=== PATIENT | female | born 1960 | race Caucasian/White ===

== ENCOUNTER → 2016-10-04 | Outpatient (CLI) | payer BC ==
--- NOTE | 2016-10-05 17:45 | RADIOLOGY REPORT (SQ) ---
EXAM DESCRIPTION: MRI LT LOWER EXTREMITY COMBO COMPLETED DATE/TIME: 10/04/2016 8:49 pm REASON FOR STUDY: Localized swelling, mass and lump, lower limb, bilateral R22.43 LOCALIZED SWELLIN G, MASS AND LUMP, LOWER LIMB, BILATE COMPARISON: None. TECHNIQUE: T1-weighted, T2-weighted, and gradient echo noncontrast multiplanar imaging of the left f oot. LIMITATIONS: None. FINDINGS: MARROW SIGNAL: There is diffuse marrow edema throughout the 4th metatarsal proximal metaph ysis and proximal and mid diaphysis worrisome for stress fracture there is mild contrast enhancement of the marrow. The small focus of marrow edema in the proximal 2nd metatarsal metaphysis present with lung worrisome for early or developing stress fracture. There is an old healed stress fracture the base of the metatarsal axial STIR image 16 without marrow edema or enhancement. JOINT EFFUSION: There is a small synovial cyst protruding off the dorsal aspect of the calcaneocuboid joint, measuring 9 mm in size on axial image 8, coronal image 32, and sagittal image 13. PLANTAR FASCIA: Normal as visualized. TARSOMETATARSAL AND TOE ARTICULATIONS: Anatomic. Mild degenerative changes first metatarsal phalange al joint. INTERMETATARSAL SPACES AND PLANTAR PLATES: A 10 x 5 x 5 mm fluid collection is present between the 3r d and 4th metatarsal heads. No associated contrast enhancement. This is best shown on axial image 1 3 and coronal image 15. No soft tissue mass to suggest a neuroma. SOFT TISSUES: No masses. No fibrosis. OTHER: No other significant finding. IMPRESSION: 4th metatarsal stress fracture 2nd metatarsal stress fracture Fluid between the 3rd and 4th metatarsal heads without enhancing solid nodule TECHNICAL DOCUMENTATION: JOB ID: [id number] [employer]- All Rights Reserved
== END ==
LOC: RAD 19:20
PROVIDERS: ATTEND Podiatrist Foot & Ankle Surgery
DX: R22.43 Localized swelling, mass and lump, lower limb, bilateral (principal); S92.322A Displaced fracture of second metatarsal bone, left foot, initial encounter for closed fracture; S92.342A Displaced fracture of fourth metatarsal bone, left foot, initial encounter for closed fracture; X58.XXXA Exposure to other specified factors, initial encounter
CPT/HCPCS: 82565; 73720; A9576

== ENCOUNTER → 2016-10-08 | Outpatient (CLI) | payer BC ==
--- NOTE | 2016-10-09 08:20 | RADIOLOGY REPORT (SQ) ---
EXAM DESCRIPTION: MRI RT LOWER EXTREMITY WITHOUT COMPLETED DATE/TIME: 10/08/2016 5:48 pm REASON FOR STUDY: MASS R22.43 LOCALIZED SWELLING, MASS AND LUMP, LOWER LIMB, BILATE COMPARISON: None. TECHNIQUE: T1-weighted, T2-weighted, and gradient echo noncontrast multiplanar imaging of the right foot. Additional T1 post-contrast axial coronal and sagittal images of the right foot were obtained. Patient was injected with 15 mL of IV ProHance gadolinium. Estimated GFR greater than 60 LIMITATIONS: None. FINDINGS: MARROW SIGNAL: There is marrow edema in the subcortical bone, at the articulation between the 2nd and 3rd metatarsal bases, best shown on axial STIR series 6 image 7-9. There is also marrow edema throughout the proximal 3rd of the 4th metatarsal, and marrow edema throughout the lateral cune iform bone. These changes are best shown on axial STIR series 6, images 8-2. JOINT EFFUSION: There is fluid at the 1st metatarsophalangeal joint. There is also an 11 x 11 x 3 mm synovial cyst between the 3rd and 4th metatarsal heads on coronal series 4 image 14, and axial serie s 6 image 13. PLANTAR FASCIA: Normal as visualized. TARSOMETATARSAL AND TOE ARTICULATIONS: Anatomic. Mild degenerative changes first metatarsal phalange al joint. INTERMETATARSAL SPACES AND PLANTAR PLATES: 11 x 11 x 3 mm synovial cyst between the 3rd and 4th metat arsal heads. No solid masses. No abnormal contrast enhancement. SOFT TISSUES: No masses. No fibrosis. OTHER: There is joint space narrowing and subcortical cyst formation between the bases of the 2nd and 3rd metatarsals, and between the bases of the 3rd and 4th metatarsals. There is joint space narrowi ng and subcortical cyst formation and bony spurring at the 3rd tarsometatarsal joint. 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 TECHNICAL DOCUMENTATION: JOB ID: [id number] [employer]- All Rights Reserved
== END ==
LOC: RAD 16:30
PROVIDERS: ATTEND Podiatrist Foot & Ankle Surgery
DX: R22.43 Localized swelling, mass and lump, lower limb, bilateral (principal)
CPT/HCPCS: 73718; A9576

== ENCOUNTER → 2018-07-08 | Outpatient (CLI) | payer BC ==
[2018-07-08 08:49] LABS: CHOLESTEROL 219.42 mg/dL (0-200); TRIGLYCERIDES 100 mg/dL (<150)
[2018-07-08 09:00] LABS: DIRECT LDL 135 mg/dL (<100)
== END ==
LOC: OD 07:01
PROVIDERS: ATTEND Internal Medicine
DX: E78.00 Pure hypercholesterolemia, unspecified (principal)
CPT/HCPCS: 36415; 80061

== ENCOUNTER → 2018-08-20 | Outpatient (CLI) | payer OTHER ==
--- NOTE | 2018-08-20 10:16 | WOMENS IMAGING REPORT ---
EXAM DESCRIPTION: LEFT DIAGNOSTIC MAMMO W/CAD; U/S BREAST UNILAT LIMITED COMPLETED DATE/TIME: 08/20/2018 8:39 am; 08/20/2018 9:00 am REASON FOR STUDY: R92.2 INCONCLUSIVE MAMMOGRAM; R92.2 LEFT BREAST R92.2 INCONCLUSIVE MAMMOGRAM COMPARISON: 07/09/2018 TECHNIQUE: True lateral and cone compression views. LIMITATIONS: None. FINDINGS: BREAST LATERALITY: left MASSES: None. CALCIFICATIONS: No new or suspicious calcifications. ARCHITECTURAL DISTORTION: None. DEVELOPING DENSITY: Nodular density at 12 o'clock compresses out. ASYMMETRY: None noted. OTHER: No other significant findings. Ultrasound was performed. No abnormality in the 12 o'clock position. Incidental intramammary lymph node at 5 o'clock. IMPRESSION: No evidence of malignancy. BREAST DENSITY: b. There are scattered areas of fibroglandular density. BIRAD: 2 Benign findings. RECOMMENDATION: RECOMMENDED FOLLOW UP: Birads 1 or 2: The patient should resume routine screening . SPECIFIC INTERVENTION/IMAGING/CONSULTATION RECOMMENDED:No additional intervention/ imaging/consultati on needed at this time. COMMUNICATION:The imaging findings were not discussed with the patient. Her referring provider has be en notified of the findings. COMMENT: The patient has been notified of the results by letter per [place] requirements. Additional no tification policies are in place for contacting patient with suspicious or incomplete findings. Quality ID #225: The [employer] recommends an annual screening mammogram for women aged 40 years or over. This facility utilizes a reminder system to ensure that all patients receive reminder letters, and/or direct phone calls for appointments. This includes reminders for routine scr eening mammograms, diagnostic mammograms, or other Breast Imaging Interventions when appropriate. Th is patient will be placed in the appropriate reminder system. The [employer] (ACR) has developed recommendations for screening MRI of the breast s in certain patient populations, to be used in conjunction with mammography. Breast MRI surveillanc e may be appropriate for women with more than 20% lifetime risk of developing breast cancer as deter mined by genetic testing, significant family history of the disease, or history of mantle radiation f or Hodgkins Disease. ACR Practice Guidelines 2008. TECHNICAL DOCUMENTATION: FINDING NUMBER: (1) ASSESSMENT: (1) JOB ID: [id number] [employer]- All Rights Reserved Reading location - IP/workstation name: [facility]-
== END ==
LOC: WI 07:55
PROVIDERS: ATTEND Internal Medicine
DX: R92.2 Inconclusive mammogram (principal)
CPT/HCPCS: 76642

== ENCOUNTER → 2019-11-01 | Outpatient (CLI) | payer BC ==
--- NOTE | 2019-11-01 17:11 | WOMENS IMAGING REPORT ---
EXAM DESCRIPTION: 3D SCREENING MAMMO BILAT IMAGES COMPLETED DATE/TIME: 11/01/2019 2:29 pm REASON FOR STUDY: Z12.39 ENCOUNTER FOR OTHER SCREENING FOR MALIGNANT NEOPLASM OF BREAST Z12.39 ENCO UNTER FOR OTH SCREENING FOR MALIGNANT NEOPLASM OF COMPARISON: Screening mammogram, 07/09/2018. Left breast diagnostic mammogram and ultrasound 08/21/19 19. EXAM PARAMETERS: Standard craniocaudal and mediolateral oblique views of each breast recorded using digital acquisition and breast tomosynthesis. Additional "push-back craniocaudal and mediolateral ob lique images acquired. . Read with the assistance of CAD. .[facility] - tok tok tok Client Hr Manager Version 9.2 LIMITATIONS: None. FINDINGS: IMPLANTS: Bilateral subpectoral implants. Findings present which are benign by mammographic criteria. A circumscribed mass in the left central breast 12 o'clock position as seen on prior diagnostic mammogram and ultrasound is unchanged in size and appearance since previous. On ultrasound this was thought represent a small intramammary lymph node. No suspicious masses, calcifications or architectural distortion. Benign mammographic findings may include one or more of the following: Smooth masses, popcorn/rim/co arse calcifications, asymmetries, post-procedure changes, and lesions with long-standing stability. IMPRESSION: BENIGN MAMMOGRAPHIC FINDINGS. BIRADS 2 BREAST DENSITY: b. There are scattered areas of fibroglandular density. BIRAD: ASSESSMENT: 2 BENIGN FINDING(S) RECOMMENDATION: ROUTINE SCREENING COMMENT: The patient has been notified of the results by letter per MQSA requirements. Additional no tification policies are in place for contacting patient with suspicious or incomplete findings. Quality ID #225: The [employer] recommends an annual screening mammogram for women aged 40 years or over. This facility utilizes a reminder system to ensure that all patients receive reminder letters, and/or direct phone calls for appointments. This includes reminders for routine scr eening mammograms, diagnostic mammograms, or other Breast Imaging Interventions when appropriate. Th is patient will be placed in the appropriate reminder system. TECHNICAL DOCUMENTATION: FINDING NUMBER: (1) ASSESSMENT: (1) JOB ID: [id number] [employer]- All Rights Reserved Reading location - IP/workstation name: [email or web address]
== END ==
LOC: WI 13:53
PROVIDERS: ATTEND Nurse Practitioner Family
DX: Z12.31 Encounter for screening mammogram for malignant neoplasm of breast (principal); N63.20 Unspecified lump in the left breast, unspecified quadrant; Z98.82 Breast implant status
CPT/HCPCS: 77063; 77067